=== PATIENT | female | born 1975 | race Caucasian/White ===

== ENCOUNTER 2020-05-31 21:13 | Emergency (ER) | payer SELFPAY ==
[~2020-05-31 21:13] MED LIST: Iopamidol 370 76% 125 ML VIAL FS ONE; Sodium Chloride 0.9% 100 ML BAG ONE
[2020-05-31 22:19] LABS: #Lymphocytes 1.7 thou/uL (1.20-3.40); #Monocytes 0.3 thou/uL (0.11-0.59); #Neutrophils 3.8 thou/uL (1.40-6.50); %Basophils 0.4 % (0.0-1.0); %Eosinophils 0.3 % (0.0-10.0); %Lymphocytes 29.3 % (21.0-51.0); %Monocytes 4.4 % (0.0-10.0); %Neutrophils 65.7 % (42.0-75.0); Hemoglobin 13.6 g/dL (12.0-16.0); Mean Corpuscular HGB CONC 32.5 g/dL (32.0-36.0); Mean Corpuscular Hemoglobin 26.4 pg (27.0-31.0); Mean Corpuscular Volume 81.1 fL (78.0-98.0); Mean Platelet Volume 7.1 fL (7.4-10.4); Platelet Count 272 thou/uL (130-400); RBC Distribution Width 14.4 % (11.5-14.5); Red Blood Cell (RBC) Count 5.15 mill/uL (4.20-5.40); White Blood Cell (WBC) Count 5.8 thou/uL (4.8-10.8)
[2020-05-31 22:35] LABS: Bilirubin Negative (Negative); Blood, Urine Large (Negative); Clarity Cloudy (Clear); Glucose, Urine (Dipstick) >=1000 mg/dL (Negative); Ketone, Urine > or equal to 80 mg/dL (Negative); Leukocyte Negative (Negative); Nitrite Negative (Negative); Protein, Urine (Dipstick) 30 mg/dL (Neg-Trace)
[2020-05-31 22:37] LABS: PTT 42.1 sec (22.9-36.1)
[2020-05-31 22:38] LABS: ALT (SGPT) 28 U/L (8-55); AST (SGOT) 42 U/L (5-34); Albumin 3.7 g/dL (3.5-5.0); Alkaline Phosphatase 102 U/L (40-110); Anion Gap 18 mmol/L (10-20); BUN (Urea Nitrogen) 8 mg/dL (7.0-18.7); Bilirubin, Total 0.4 mg/dL (0.2-1.2); Calc. Creatinine Clearance 0 mL/min (70-130); Carbon Dioxide 21 mmol/L (22-29); Chloride 103 mmol/L (98-107); D-Dimer Test 2.08 *mcg/mL (0.27-0.43); Globulin 3.2 g/dL (2.4-3.5); Glucose 291 mg/dL (70-105); INR-International Normal Ratio 0.9; Potassium 3.8 mmol/L (3.5-5.1); Protein, Total 6.9 g/dL (6.0-8.3); Prothrombin Time 12.3 sec (12.0-14.7); Sodium 138 mmol/L (136-145)
[2020-05-31 22:44] LABS: Bacteria/HPF Rare-Few HPF (None Seen); RBC/HPF Greater than 50 HPF (0-3); WBC/HPF 0-3 HPF (0-3)
[2020-05-31 22:45] LABS: Mucous/LPF 1+ LPF (<2+)
[2020-05-31] MEDS ORDERED: Dexamethasone 10 MG/ML VIAL ONE (22:48)
[2020-05-31] MEDS ORDERED: Lisinopril 10 MG TAB ONE (22:48)
[2020-05-31] MEDS ORDERED: Enoxaparin Sodium 40 MG/0.4 ML SYRINGE ONE (22:48)
[2020-05-31] MEDS ORDERED: cloNIDine 0.1 MG TAB ONE (22:48)
[2020-05-31] MEDS ORDERED: Fluconazole 100 MG TAB ONE (22:48)
--- NOTE | 2020-05-31 23:06 | CT ---
CT angiogram chest: 05/31/2020 COMPARISON: None HISTORY: Shortness of breath TECHNIQUE: Axial CT imaging at 2.5 mm intervals through the chest with IV contrast. Coronal and obliq ue sagittal 3-D reformatted imaging obtained. FINDINGS: There is diffuse hepatic hypodensity, evidence of steatosis. Respiratory motion artifact and timing of the contrast bolus limits detailed assessment of the pulmon [place] arterial vasculature. There is no evidence for a central pulmonary arterial embolism. Distal pulmonary arterial branches are not well assessed. No pleural, pericardial, or mediastinal fluid is seen. The mediastinal, hilar, and axillary regions demonstrate no evidence for lymphadenopathy. There is extensive bilateral multifocal interstitial and groundglass opacity, highly suspicious for d iffuse bilateral Covid pneumonia. No acute osseous abnormality. IMPRESSION: Limited assessment for pulmonary arterial embolism. No evidence for a central acute pulmo nary arterial embolism. Extensive bilateral interstitial and groundglass opacity suspicious for bilateral Covid pneumonia.
[2020-05-31] MEDS ORDERED: Morphine 2 MG/ML VIAL ONE (23:25)
[2020-05-31] MEDS ORDERED: Metoclopramide HCl 10 MG/2 ML VIAL ONE (23:26)
[2020-05-31] MEDS ORDERED: Sodium Chloride 0.9% 250 ML 250 ML ONE (23:26)
[2020-05-31] MEDS ORDERED: Azithromycin 500 MG VIAL ONE (23:26)
[2020-05-31] MEDS ORDERED: Sodium Chloride 0.9% 100 ML ONE (23:26)
[2020-05-31] MEDS ORDERED: cefTRIAXone\\ROCEPHIN 2 GM VIAL ONE ×2 (23:26→23:28)
[2020-05-31] MEDS ORDERED: Acetaminophen 500 MG TAB ONE (23:26)
[2020-05-31] MEDS ORDERED: Prochlorperazine 10 MG/2 ML VIAL ONE (23:27)
== END 2020-06-01 00:48 | disposition short-term general hospital (02) ==
LOC: MADERS 21:13
DX: A41.9 Sepsis, unspecified organism (principal); U07.1 COVID-19; I10 Essential (primary) hypertension; B37.9 Candidiasis, unspecified; J80 Acute respiratory distress syndrome; E11.9 Type 2 diabetes mellitus without complications; F17.290 Nicotine dependence, other tobacco product, uncomplicated; Z79.4 Long term (current) use of insulin; Z79.899 Other long term (current) drug therapy
CPT/HCPCS: 71275; 80053; 81003; 81015; 83605; 83880; 84484; 85025; 85379; 85610; 85730; 87040; 93005; 96365; 96372; 96375; J0456; J0696; J0780; J1100; J1650; J2270; J2765; J3490; J7050; Q9967